=== PATIENT | male | born 1960 | race Caucasian/White ===

== ENCOUNTER 2024-01-03 07:07 | Emergency (ER) | payer MEDICARE, OTHER ==
[~2024-01-03] VITALS: Ht 172.7 cm; Wt 72.6 kg
[~2024-01-03 07:07] MED LIST: Bactrim Ds Tab1 EACH PO; CEPH500 PO; Permethrin60 GM TOP
[2024-01-03] MEDS ORDERED: NS 1,000 ML IV SCH (09:40)
[2024-01-03] MEDS ORDERED: Acetaminophen 325 MG TABLET PO ONE (09:40)
[2024-01-03] MEDS ORDERED: Ketorolac Tromethamine 15mg Vial IV ONE (09:40)
[2024-01-03 10:03] LABS: BASOPHILS PERCENT AUTO 1 % (0-2); EOSINOPHILS ABSOLUTE AUTO 0.51 K/mm3 (0.00-0.68); EOSINOPHILS PERCENT AUTO 6 % (0-6); Hematocrit 29.5 % (37.0-53.0); Hemoglobin 8.7 g/dL (13.5-17.5); IMMATURE GRAN ABSOLUTE AUTO 0.02 K/mm3 (0.00-0.10); IMMATURE GRAN PERCENT AUTO 0 % (0-1); LYMPHOCYTES ABSOLUTE AUTO 1.59 K/mm3 (0.84-5.20); LYMPHOCYTES PERCENT AUTO 18 % (21-46); MONOCYTES PERCENT AUTO 10 % (4-13); Mean Corpuscular HGB Conc 29.5 g/dL (31.5-36.5); Mean Corpuscular Volume 68 fL (80-100); Mean Platelet Volume 9.7 fL (9.1-12.4); NEUTROPHILS ABSOLUTE AUTO 5.91 K/mm3 (1.96-9.15); NEUTROPHILS PERCENT AUTO 66 % (41-73); Platelet Count 287 K/mm3 (150-400); RDW Coefficient Variation 19.3 % (11.7-14.2); Red Blood Cell Count 4.35 M/mm3 (4.30-5.90); White Blood Cell Count 9.03 K/mm3 (4.00-11.30)
[2024-01-03 10:35] LABS: Albumin, Blood 3.4 g/dL (3.4-5.0); Albumin/Globulin Ratio 0.8 (0.8-1.8); Bilirubin, Total 0.3 mg/dL (0.1-1.0); Bun/Creatinine Ratio 14.3 (12.0-20.0); Calcium, Blood 8.7 mg/dL (8.5-10.1); Creatinine, Blood 0.98 mg/dL (0.60-1.20); Globulin, Blood 4.1 g/dL (2.2-4.0); Potassium, Blood 4.1 mmol/L (3.5-5.5); Total Protein, Blood 7.5 g/dL (6.4-8.2)
[2024-01-03] MEDS ORDERED: OxyCODONE 5 mg/Acetamin 325 mg TABLET PO ONE (11:05)
[2024-01-03] MEDS ORDERED: Ketorolac Tromethamine 30mg Vial IM ONE (11:25)
[2024-01-03] MEDS ORDERED: Clindamycin HCl 150 MG Cap PO ONE (11:55)
[2024-01-03] MEDS ORDERED: DiphenhydrAMINE HCL 25 MG Cap PO ONE (11:55)
[2024-01-03] MEDS ORDERED: TRIDERM28.4 GM TOP (12:00)
[2024-01-03] MEDS ORDERED: Clindamycin HC150 MG PO (12:00)
== END 2024-01-03 12:27 | disposition home or self-care (01) ==
LOC: ER 07:07
PROVIDERS: Student in an Organized Health Care Education/Training Program
DX: L03.114 Cellulitis of left upper limb (principal); L03.113 Cellulitis of right upper limb; F15.90 Other stimulant use, unspecified, uncomplicated; Z79.899 Other long term (current) drug therapy
CPT/HCPCS: 80053; 85025; 96372; 99283-25; A9270; J1885

== ENCOUNTER 2024-01-12 10:43 | Emergency (ER) | payer MEDICARE, OTHER ==
[~2024-01-12] VITALS: Ht 167.6 cm; Wt 72.6 kg
[~2024-01-12 10:43] MED LIST changes: +Clindamycin HC150 MG PO; +TRIDERM28.4 GM TOP
== END 2024-01-12 11:08 | disposition home or self-care (01) ==
LOC: ER 10:43
DX: L03.114 Cellulitis of left upper limb (principal); L03.113 Cellulitis of right upper limb; L03.116 Cellulitis of left lower limb; L03.115 Cellulitis of right lower limb; L02.414 Cutaneous abscess of left upper limb; L02.413 Cutaneous abscess of right upper limb; Z79.899 Other long term (current) drug therapy; Z79.2 Long term (current) use of antibiotics
CPT/HCPCS: 99282

== ENCOUNTER 2024-01-18 11:10 | Emergency (ER) | payer MEDICARE, OTHER ==
[~2024-01-18] VITALS: Ht 172.7 cm; Wt 72.6 kg
[2024-01-18 11:37] LABS: BASOPHILS ABSOLUTE AUTO 0.15 K/mm3 (0.00-0.23); BASOPHILS PERCENT AUTO 2 % (0-2); EOSINOPHILS ABSOLUTE AUTO 1.23 K/mm3 (0.00-0.68); EOSINOPHILS PERCENT AUTO 15 % (0-6); Hematocrit 30.1 % (37.0-53.0); Hemoglobin 9.1 g/dL (13.5-17.5); IMMATURE GRAN ABSOLUTE AUTO 0.02 K/mm3 (0.00-0.10); IMMATURE GRAN PERCENT AUTO 0 % (0-1); LYMPHOCYTES ABSOLUTE AUTO 2.08 K/mm3 (0.84-5.20); LYMPHOCYTES PERCENT AUTO 25 % (21-46); MONOCYTES ABSOLUTE AUTO 0.88 K/mm3 (0.16-1.47); MONOCYTES PERCENT AUTO 11 % (4-13); Mean Corpuscular HGB Conc 30.2 g/dL (31.5-36.5); Mean Corpuscular Volume 66 fL (80-100); Mean Platelet Volume 8.9 fL (9.1-12.4); NEUTROPHILS ABSOLUTE AUTO 3.94 K/mm3 (1.96-9.15); NEUTROPHILS PERCENT AUTO 48 % (41-73); Platelet Count 482 K/mm3 (150-400); RDW Coefficient Variation 18.3 % (11.7-14.2); RDW Standard Deviation 43.5 fL (35.1-46.3); Red Blood Cell Count 4.56 M/mm3 (4.30-5.90)
[2024-01-18 11:56] LABS: Albumin, Blood 3.6 g/dL (3.4-5.0); Albumin/Globulin Ratio 0.9 (0.8-1.8); Bilirubin, Total 0.3 mg/dL (0.1-1.0); C-REACTIVE PROTEIN, EXT RANGE 0.421 mg/dL (0.000-0.300); Calcium, Blood 8.3 mg/dL (8.5-10.1); Creatinine, Blood 1.19 mg/dL (0.60-1.20); Potassium, Blood 3.4 mmol/L (3.5-5.5); Total Protein, Blood 7.6 g/dL (6.4-8.2)
[2024-01-18] MEDS ORDERED: Linezolid 600MG/Iso-Dext 300ML 300 ML IV ONE (12:25)
[2024-01-18] MEDS ORDERED: Triamcinolone Inj Susp 40 MG / ML 1ML Vial IM ONE (12:25)
[2024-01-18] MEDS ORDERED: CLIN150 PO (12:27)
== END 2024-01-18 13:47 | disposition home or self-care (01) ==
LOC: ER 11:10
PROVIDERS: Physician Assistant
DX: R21 Rash and other nonspecific skin eruption (principal); L03.116 Cellulitis of left lower limb; L03.115 Cellulitis of right lower limb; Z79.899 Other long term (current) drug therapy
CPT/HCPCS: 80053; 85025; 86140; 96372-59; 96374; 99283-25; J2020; J3301

== ENCOUNTER 2024-08-16 10:50 | Emergency (ER) | payer MEDICARE, OTHER ==
[~2024-08-16] VITALS: Ht 172.7 cm; Wt 72.6 kg
[~2024-08-16 10:50] MED LIST changes: +CLIN150 PO
[2024-08-16 11:50] LABS: BASOPHILS ABSOLUTE AUTO 0.16 K/mm3 (0.00-0.23); BASOPHILS PERCENT AUTO 2 % (0-2); EOSINOPHILS ABSOLUTE AUTO 0.51 K/mm3 (0.00-0.68); EOSINOPHILS PERCENT AUTO 6 % (0-6); Hematocrit 31.6 % (37.0-53.0); Hemoglobin 9.3 g/dL (13.5-17.5); IMMATURE GRAN ABSOLUTE AUTO 0.02 K/mm3 (0.00-0.10); IMMATURE GRAN PERCENT AUTO 0 % (0-1); LYMPHOCYTES ABSOLUTE AUTO 1.83 K/mm3 (0.84-5.20); LYMPHOCYTES PERCENT AUTO 22 % (21-46); MONOCYTES ABSOLUTE AUTO 0.65 K/mm3 (0.16-1.47); MONOCYTES PERCENT AUTO 8 % (4-13); Mean Corpuscular HGB 19.5 pg (26.0-34.0); Mean Corpuscular HGB Conc 29.4 g/dL (31.5-36.5); Mean Corpuscular Volume 66 fL (80-100); Mean Platelet Volume 9.2 fL (9.1-12.4); NEUTROPHILS ABSOLUTE AUTO 5.24 K/mm3 (1.96-9.15); NEUTROPHILS PERCENT AUTO 62 % (41-73); Platelet Count 508 K/mm3 (150-400); RDW Coefficient Variation 16.9 % (11.7-14.2); RDW Standard Deviation 39.7 fL (35.1-46.3); Red Blood Cell Count 4.76 M/mm3 (4.30-5.90); White Blood Cell Count 8.41 K/mm3 (4.00-11.30)
[2024-08-16 12:07] LABS: Albumin, Blood 3.4 g/dL (3.4-5.0); Albumin/Globulin Ratio 0.7 (0.8-1.8); Bilirubin, Total 0.3 mg/dL (0.1-1.0); Bun/Creatinine Ratio 10.9 (12.0-20.0); Calcium, Blood 8.8 mg/dL (8.5-10.1); Creatinine, Blood 1.29 mg/dL (0.60-1.20); Globulin, Blood 4.6 g/dL (2.2-4.0); Potassium, Blood 3.9 mmol/L (3.5-5.5)
[2024-08-16] MEDS ORDERED: HYDROCORTISON TOP (13:48)
== END 2024-08-16 13:51 | disposition home or self-care (01) ==
LOC: ER 10:50
PROVIDERS: Student in an Organized Health Care Education/Training Program
DX: R21 Rash and other nonspecific skin eruption (principal)
CPT/HCPCS: 80053; 85025; 99283

== ENCOUNTER 2024-08-18 18:34 | Emergency (ER) | payer MEDICARE, OTHER ==
[~2024-08-18] VITALS: Ht 172.7 cm; Wt 72.6 kg
[~2024-08-18 18:34] MED LIST changes: +HYDROCORTISON TOP
[2024-08-18] MEDS ORDERED: Triamcinolone A15 GM TOP ×3 (18:50→19:06)
== END 2024-08-18 18:58 | disposition home or self-care (01) ==
LOC: ER 18:34
DX: L29.9 Pruritus, unspecified (principal); R21 Rash and other nonspecific skin eruption
CPT/HCPCS: 99282